=== PATIENT | female | born 1975 | race Caucasian/White ===

== ENCOUNTER 2021-10-27 11:57 | Emergency (ER) | payer OTHER ==
[~2021-10-27] VITALS: Ht 162.6 cm; Wt 145.2 kg
== END 2021-10-27 15:13 | disposition home or self-care (01) ==
LOC: ER 11:57
DX: S31.115A Laceration without foreign body of abdominal wall, periumbilic region without penetration into peritoneal cavity, initial encounter (principal); K42.9 Umbilical hernia without obstruction or gangrene; F17.200 Nicotine dependence, unspecified, uncomplicated; X58.XXXA Exposure to other specified factors, initial encounter
CPT/HCPCS: 99283

== ENCOUNTER 2023-02-10 08:41 | Day surgery (SDC) | payer OTHER ==
[~2023-02-10] VITALS: Ht 159 cm; Wt 164.0 kg
[~2023-02-10 08:41] MED LIST: CHLO25B; LISI20 PO
[2023-02-10 09:53] VITALS: BP 145/75
--- NOTE | 2023-02-10 11:10 | NUR ---
02/10/23 1110 Sim Velasco MONITOR INTACT WITH CONTINUOUS PULSE OXIMETRY, CONTINUOUS END TITAL CO2, AND INTERMITTENT BLOOD PRESSURE.AND EKG MAC PER DR. BASURTO
[2023-02-10 11:58] VITALS: BP 116/81
--- NOTE | 2023-02-10 11:58 | NUR ---
PT TO DAY SURGERY STEP DOWN RECOVERY. PT IS AWAKAE AND ORIENTED X3. PT ABLE TO MOVE SELF IN BED. DENIES PAIN.
[2023-02-10 12:17] VITALS: BP 121/75
--- NOTE | 2023-02-10 12:17 | NUR ---
PT FEELING WELL AND DESIERS TO GO HOME Patient up to Ambulate independently. Gait steady. Discharge instructions reviewed with patient. Patient verbalizes understanding. Copy given to patient to take home. Patient States Post-Procedure ride home has been arranged.
--- NOTE | 2023-02-10 12:26 | NUR ---
Discharged via wheelchair to private car for ride home.
== END 2023-02-10 12:27 | disposition home or self-care (01) ==
LOC: ORSCMMR 08:41 → ORD 10:15 → ORSCMMR 12:27
PROVIDERS: Internal Medicine Gastroenterology
PROC: 3E0H8GC Introduction of Other Therapeutic Substance into Lower GI, Via Natural or Artificial Opening Endoscopic (ICD-10-PCS; principal; 2023-02-10 10:15)
PROC: 0DBL8ZX Excision of Transverse Colon, Via Natural or Artificial Opening Endoscopic, Diagnostic (ICD-10-PCS; principal; 2023-02-10 10:15)
PROC: 0DBN8ZX Excision of Sigmoid Colon, Via Natural or Artificial Opening Endoscopic, Diagnostic (ICD-10-PCS; principal; 2023-02-10 10:15)
DX: Z12.11 Encounter for screening for malignant neoplasm of colon (principal); D12.3 Benign neoplasm of transverse colon; D12.5 Benign neoplasm of sigmoid colon; K64.4 Residual hemorrhoidal skin tags; Z80.0 Family history of malignant neoplasm of digestive organs; I10 Essential (primary) hypertension; E66.01 Morbid (severe) obesity due to excess calories; Z68.44 Body mass index [BMI] 60.0-69.9, adult
CPT/HCPCS: 88305; J2704; J7120